=== PATIENT | female | born 1995 | race Caucasian/White ===

== ENCOUNTER 2016-11-13 21:02 | Emergency (ER) | payer SELFPAY ==
[~2016-11-13] VITALS: Ht 162.6 cm; Wt 96.5 kg
[2016-11-13 21:05] VITALS: Ht 162.6 cm; Wt 96.5 kg
[2016-11-13] MEDS ORDERED: KETOROLAC 60 MG INJ IM STA (22:58)
[2016-11-13] MEDS ORDERED: CYCL-319 PO (23:03)
[2016-11-13] MEDS ORDERED: IBUP800T25 PO (23:03)
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
== END 2016-11-13 23:35 | disposition home or self-care (01) ==
LOC: E/R 21:02
DX: M54.5 Low back pain (principal)
CPT/HCPCS: 96372; 99284; J1885